=== PATIENT | male | born 1955 | race Caucasian/White ===

== ENCOUNTER 2016-09-13 06:04 | Day surgery (SDC) | payer BC ==
[~2016-09-13] VITALS: Ht 177.8 cm; Wt 91.5 kg
--- NOTE | ~2016-09-13 | OR ---
PATIENT'S NAME: GERA CHOUDHARY [facility] AGE: 61 Y [address] ROOM: [place] [address] LOCATION: [facility] [place] DATE: 09/13/2016 OR/Procedure Report DISCHARGE DATE: FAMILY PHYSICIAN: Joel Hidalgo MD ATTENDING PHYSICIAN: Abel Adler V SURGEON: Abel Adler MD CAPTAIN'S ASSISTANT: DATE OF PROCEDURE: 09/13/2016 DICTATED BY: Theron Jean Baptiste MD-Student. PREOPERATIVE DIAGNOSIS: Left nasal sidewall abscess. POSTOPERATIVE DIAGNOSIS: Left nasal sidewall abscess. PROCEDURE PERFORMED: Incision and drainage of left nasal sidewall abscess and removal of foreign body. ANESTHESIA: General endotracheal anesthesia. ESTIMATED BLOOD LOSS: 5 mL. SPECIMENS REMOVED: Culture from the left nasal sidewall and foreign body from the left nasal sidewall. FINDINGS: Purulent fluid underneath the skin in the left nasal sidewall with foreign body from either previous trauma or rhinoplasty 10 years ago. This was removed and copiously irrigated. INDICATIONS: Mr. Choudhary is a 61-year-old male who developed a left nasal sidewall abscess which was aspirated in the clinic. The pain and infection persisted, so it was recommended he undergo an incision and drainage in the operating room. PROCEDURE DETAILS: The patient was seen in the preoperative holding area, for the patient for incision and drainage of left nasal sidewall abscess. After full knowledge of risks, benefits, and alternatives; the patient wished to proceed. The patient was taken to the operating room, placed on the operating room table. General endotracheal anesthesia was induced without any difficulty. A time-out was performed identifying the patient, so was the procedure to be performed. No preoperative antibiotics were given. Bilateral sequential compression stockings were placed. All pressure points were padded. We designed a Norman incision along the left nasal sidewall and infiltrated this with 1% lidocaine with 1:100,000 parts of epinephrine. We had a going along the subciliary area as well. In PATIENT'S NAME: GERA CHOUDHARY [facility] AGE: 61 Y [address] ROOM: [place], [place] [address] LOCATION: [facility] [place] ADMIT DATE: 09/13/2016 OR/Procedure Report DISCHARGE DATE: FAMILY PHYSICIAN: Joel Hidalgo MD ATTENDING PHYSICIAN: Abel Adler V case we needed to remove the orbital floor plate. The patient was then prepped and draped in normal sterile fashion. We used a #15 blade to incise the premarked incision along the left nasal sidewall. We immediately entered into the purulent fluid collection. This was cultured and sent. We then identified several sheets of what appeared to be silastic overlying the nasal bones. These were removed and sent for pathology as well. We debrided the cavity. I then copiously irrigated the wound with sterile saline. We then opted to make an incision from the wound bed intranasally above the upper lateral cartilage to allow any excess fluid to egress out of the wound. Attention was then turned to closing the wound. We used 4-0 Vicryl in a deep buried fashion and closed the skin with 6-0 nylon in an interrupted fashion. This marked the conclusion of the procedure. All sponge and needle counts were correct x2. The patient was passed by the anesthesia where he was extubated without any difficulty and transported to the PACU in stable condition. He will be discharged home. Dr. Adler was scrubbed and present for the entirety of this procedure. ABEL ADLER MD TVC/modl /[id number] d: 09/13/16 1207 t: 09/27/16 1844, OPERATIVE SUMMARY
[~2016-09-13 06:04] MED LIST: AMOXICILLIN875 MG PO; ASMANEX110 MC1 INH; DESYREL100 MG PO; FISH OIL 1,2001 EACH PO; FLEXERIL10 MG PO; LISINOPRIL-HCT1 EAC1 PO; MOBIC15 MG PO; MULTI-DAY VITA1 EACH PO; NASACORT16.9 ML NOSE; PREVACID30 M1 PO; PROTONIX40 MG PO; ULTRAM50 MG PO
[2016-09-13 06:43] LABS: BASOPHIL # 0.1 K/uL (0.0-0.2); BASOPHIL % 1.1 %; EOSINOPHIL # 0.2 K/uL (0.0-0.5); EOSINOPHIL % 3.1 %; HEMATOCRIT 46.6 % (37.0-53.0); HEMOGLOBIN 16.3 g/dL (11.0-16.0); IMMATURE GRANULOCYTE % 0.6 %; LYMPHOCYTE # 1.6 K/uL (0.8-4.0); LYMPHOCYTE % 29.9 %; MCH 33.3 pg (27.0-34.0); MCV 95.3 fl (83.0-98.0); MONOCYTE # 0.6 K/uL (0.0-1.0); MONOCYTE % 10.3 %; NRBC % 0 /100WBC (0-0.00); PLATELET COUNT 258 K/uL (150-450); RBC 4.89 M/uL (3.50-5.50); RDW-CV 12.8 % (11.9-14.6); WBC 5.5 K/uL (4.0-11.0)
[2016-09-13 06:54] LABS: INR - (THERAPEUTIC) 0.99 (0.92-1.07); PROTIME 10.4 SECONDS (9.8-11.4)
[2016-09-13] MEDS ORDERED: AUGMENTIN 875-1 EACH PO (09:51)
[2016-09-13] MEDS ORDERED: NORCO 5-325 TA1 EACH PO (09:52)
== END 2016-09-13 11:40 | disposition disaster alternative care site (69) ==
LOC: GSDC 06:04 → GPOC 15:00 → GSDC 15:00
PROVIDERS: Otolaryngology
PROC: 09CK0ZZ Extirpation of Matter from Nasal Mucosa and Soft Tissue, Open Approach (ICD-10-PCS; principal; 2016-09-13)
PROC: 099K0ZX Drainage of Nasal Mucosa and Soft Tissue, Open Approach, Diagnostic (ICD-10-PCS; 2016-09-13)
DX: J32.2 Chronic ethmoidal sinusitis (principal); T17.1XXA Foreign body in nostril, initial encounter; M19.90 Unspecified osteoarthritis, unspecified site; K21.9 Gastro-esophageal reflux disease without esophagitis; I10 Essential (primary) hypertension; Z98.890 Other specified postprocedural states; Z96.652 Presence of left artificial knee joint; Z79.891 Long term (current) use of opiate analgesic; Z79.899 Other long term (current) drug therapy; Z79.2 Long term (current) use of antibiotics
CPT/HCPCS: J0171; J1170; J2001; J3010; J7120